=== PATIENT | female | born 1990 | race Caucasian/White ===

== ENCOUNTER 2021-08-14 20:59 | Emergency (ER) | payer MEDICAID ==
[~2021-08-14] VITALS: Ht 165.1 cm; Wt 75.0 kg
[2021-08-14 21:08] VITALS: TEMP 98.2
[2021-08-14 22:08] VITALS: BP 124/78; PULSE 80
== END 2021-08-14 22:08 | disposition home or self-care (01) ==
LOC: COL.ER 20:59
PROVIDERS: Emergency Medicine
DX: Z32.02 Encounter for pregnancy test, result negative (principal)